=== PATIENT | male | born 1990 | race Caucasian/White ===

== ENCOUNTER 2016-05-06 19:50 | Emergency (ER) | payer SELFPAY ==
[~2016-05-06] VITALS: Ht 180.3 cm; Wt 67.3 kg
[2016-05-06 19:58] VITALS: BP 128/98; PULSE 73; RESP 15; TEMP 98.3; O2SAT 99
[2016-05-06] MEDS ORDERED: AUGM875T PO (20:11)
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
[2016-05-06] MEDS ORDERED: TETANUS/DIPHTHERIA TOXOID ADULT 0.5 ML VIAL IM ONE (20:15)
== END 2016-05-06 20:31 | disposition home or self-care (01) ==
LOC: PHEFT 19:50
DX: S61.451A Open bite of right hand, initial encounter (principal); S71.151A Open bite, right thigh, initial encounter; Y04.1XXA Assault by human bite, initial encounter; Y93.89 Activity, other specified; Y92.512 Supermarket, store or market as the place of occurrence of the external cause; Y99.0 Civilian activity done for income or pay; Z23 Encounter for immunization
CPT/HCPCS: 90471; 90714

== ENCOUNTER 2016-09-13 13:06 | Emergency (ER) | payer SELFPAY ==
[~2016-09-13] VITALS: Ht 180.3 cm; Wt 65.0 kg
[~2016-09-13 13:06] MED LIST: AUGM875T PO
[2016-09-13 13:08] VITALS: BP 125/80; PULSE 85; RESP 20; TEMP 98.7; O2SAT 97
--- NOTE | 2016-09-13 13:22 | PD ---
Physical Exam Time Seen by Provider: 13:21 Narrative 26yo M c/o R hand and wrist uinjury after punching wall last night. Patient seen in triage. VS reviewed. Awaiting bed placement. Data Data Last Documented VS Vital Signs Date Time Temp Pulse Resp B/P Pulse Ox O2 Delivery O2 Flow Rate FiO2 09/13/16 13:08 98.7 85 20 125/80 97 Room Air [facility] Supervised Visit with ADRIAN: Yanet Horn September 13, 2016 13:22
--- NOTE | 2016-09-13 14:26 | PD ---
HPI Chief Complaint: Injury Time Seen by Provider: 14:23 Travel History International Travel<30 days: No Contact w/Intl Traveler<30days: No Traveled to known affect area: No History of Present Illness HPI Patient's 26-year-old male presenting to him or talk evaluation of right hand pain. Patient states he struck a wall last night and he reports his pain as a 6 out of 10 and describes it as throbbing and aching. He reports pain in the dorsal aspect of his hand over the third fourth and fifth metacarpals. He took Aleve at 3:30 this morning and has not taken anything since that time. Patient denies any significant past medical history. [facility] Past Medical History Medical History: Denies Significant Hx Diminished Hearing: No Immunizations Current: Yes Social History Alcohol Use: No Tobacco Use: No Substance Use: Yes (marijuana) Allergies-Medications (Allergen,Severity, Reaction): Coded Allergies: No Known Allergies (Unverified , 09/13/16) Reported Meds & Prescriptions Reported Meds & Active Scripts Active Review of Systems Except as stated in HPI: all other systems reviewed are Neg Musculoskeletal: Positive: Myalgias, Arthralgias, Pain Physical Exam Narrative GENERAL: Well-nourished, well-developed patient. SKIN: Focused skin assessment warm/dry. HEAD: Normocephalic. EYES: No scleral icterus. No injection or drainage. NECK: Supple, trachea midline. No JVD or lymphadenopathy. CARDIOVASCULAR: Regular rate and rhythm without murmurs, gallops, or rubs. RESPIRATORY: Breath sounds equal bilaterally. No accessory muscle use. GASTROINTESTINAL: Abdomen soft, non-tender, nondistended. MUSCULOSKELETAL: No cyanosis, or edema. No obvious deformities noted. 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 Patient is neurovascularly intact. BACK: Nontender without obvious deformity. No CVA tenderness. Data Data Last Documented VS Vital Signs Date Time Temp Pulse Resp B/P Pulse Ox O2 Delivery O2 Flow Rate FiO2 09/13/16 13:08 98.7 85 20 125/80 97 Room Air Orders Hand, Complete ([id number]) (09/13/16 13:20) Wrist, Complete ([id number]) (09/13/16 13:20) Ibuprofen (Motrin) (09/13/16 14:30) MDM Medical Decision Making Medical Screen Exam Complete: Yes Emergency Medical Condition: Yes Interpretation(s) Vital Signs Date Time Temp Pulse Resp B/P Pulse Ox O2 Delivery O2 Flow Rate FiO2 09/13/16 13:08 98.7 85 20 125/80 97 Room Air Differential Diagnosis Fracture versus sprain versus strain versus other Narrative Course Patient is a 26-year-old male presenting with right hand pain after striking a wall last night. Imaging ordered and pending. Vital signs are stable, patient is resting comfortably with friend at bedside. Motrin ordered for pain. Wrist x-ray is negative for acute fracture. Hand x-ray is negative for acute fracture. Patient is encouraged to alternate heat and ice to the affected area, continue range of motion exercises, take medications as directed. He is advised to follow-up with his primary doctor. He is encouraged to return to emergency department for any new or worsening symptoms. Diagnosis Primary Impression: Hand pain Qualified Code: M79.641 - Pain of right hand Referrals: Primary Care Physician Patient Instructions: General Instructions, Hand Sprain (ED) Additional Instructions: Alternate heat and ice to affected area, continue range of motion exercises, take medications as directed, avoid exacerbating activities Follow-up with your primary doctor Return to emergency department for any new or worsening symptoms Do not hit hard objects with your fist Med/Other Pt SpecificInfo: Prescription(s) given Scripts Cyclobenzaprine (Flexeril)10 Mg Tab10 Mg PO TID PRN (MUSCLE SPASM) 10 Days Ref 0 Prov:Rosio Myers 09/13/16 Ibuprofen 800 Mg [id number] Mg PO Q6HR PRN (PAIN) #40 TAB Ref 0 Prov:Rosio Myers 09/13/16 Disposition: 01 DISCHARGE HOME Condition: Stable Rosio Myers September 13, 2016 14:26
[2016-09-13] MEDS ORDERED: IBUPROFEN 800 MG TAB PO ONE (14:30)
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
--- NOTE | 2016-09-13 15:17 | RADRPT ---
EXAM DATE/TIME: 09/13/2016 13:42 [facility] COMPARISON: No previous studies available for comparison. INDICATIONS : Right medial wrist pain. Punching injury. MEDICAL HISTORY : None. SURGICAL HISTORY : None. ENCOUNTER: Initial ACUITY: 1 day PAIN SCORE: 9/10 LOCATION: Right medial wrist FINDINGS: 3 views right hand. Bone alignment within normal limits. No evidence of fracture. CONCLUSION: No evidence of fracture. Ángel Alva MD on September 13, 2016 at 15:14 Board Certified Radiologist. This report was verified electronically.
[2016-09-13] MEDS ORDERED: IBUP800T23 PO (15:28)
[2016-09-13] MEDS ORDERED: CYCL1TAB29 PO (15:28)
== END 2016-09-13 15:49 | disposition home or self-care (01) ==
LOC: NEPK 13:06
DX: M79.641 Pain in right hand (principal)
CPT/HCPCS: 73110; 73130; 99283

== ENCOUNTER 2017-01-14 13:12 | Emergency (ER) | payer SELFPAY ==
[~2017-01-14 13:12] MED LIST changes: -AUGM875T PO; +CYCL1TAB29 PO; +IBUP800T23 PO
[2017-01-14 13:14] VITALS: BP 133/71; PULSE 69; RESP 15; TEMP 98.2; O2SAT 98
[2017-01-14 14:58] LABS: AUTOMATED NEUTROPHIL # 5.4 TH/MM3 (1.8-7.7); BASOPHIL % 0.2 % (0.0-2.0); EOSINOPHIL % 0.1 % (0.0-4.0); HEMATOCRIT 45.1 % (39.0-51.0); HEMO FLAGS DIFF FINAL; LYMPH % 13.8 % (9.0-44.0); LYMPHOCYTE # 1.1 TH/MM3 (1.0-4.8); MEAN CELL VOLUME 90.3 FL (80.0-100.0); MEAN CORPUSCULAR HEMOGLOBIN 31.7 PG (27.0-34.0); MEAN CORPUSCULAR HGB CONC 35.1 % (32.0-36.0); MONO % 15.5 % (0.0-8.0); NEUT % 70.4 % (16.0-70.0); PLATELET COUNT 172 TH/MM3 (150-450); RED CELL DISTRIBUTION WIDTH 12.8 % (11.6-17.2); WHITE BLOOD COUNT 7.7 TH/MM3 (4.0-11.0)
[2017-01-14 15:01] LABS: BACTERIA, URINE OCC /hpf; BLOOD, URINE NEG (NEG); GLUCOSE,URINE NEG (NEG); KETONE, URINE 150 mg/dL (NEG); MUCUS URINE MANY /lpf (OCC); NITRITE,URINE NEG (NEG); PH, URINE 6.5 (5.0-8.5); URINE COLOR YELLOW (YELLW/STRAW)
[2017-01-14 15:02] LABS: COMMENT (UR) CULT NOT INDICATED; CULTURE IF INDICATED CULT NOT INDICATED
[2017-01-14 15:10] VITALS: BP 123/91; PULSE 84; RESP 16; TEMP 97.7; O2SAT 100
[2017-01-14 15:17] LABS: ALT (GPT) 17 U/L (12-78); ANION GAP 9 MEQ/L (5-15); AST (GOT) 14 U/L (15-37); BICARBONATE 24.9 MEQ/L (21.0-32.0); BLOOD UREA NITROGEN 22 MG/DL (7-18); CHLORIDE 101 MEQ/L (98-107); GLOMERULAR FILTRATION RATE 118 ML/MIN (>89); POTASSIUM 3.7 MEQ/L (3.5-5.1); SODIUM (NA) 135 MEQ/L (136-145)
[2017-01-14 15:19] LABS: ALKALINE PHOSPHATASE 79 U/L (45-117); TOTAL BILIRUBIN ADULT 0.9 MG/DL (0.2-1.0)
[2017-01-14] MEDS ORDERED: LIDOCAINE HCL 1% 50 ML VIAL XX ONE (15:30)
[2017-01-14] MEDS ORDERED: cefTRIAXone 250 MG VIAL IM ONE (15:30)
[2017-01-14] MEDS ORDERED: AZITHROMYCIN PWD FOR SUSP 1 GM PACKET PO ONE (15:30)
--- NOTE | 2017-01-14 15:39 | PD ---
HPI Chief Complaint: GI Complaint Time Seen by Provider: 15:21 Travel History International Travel<30 days: No Contact w/Intl Traveler<30days: No Traveled to known affect area: No History of Present Illness HPI 26-year-old male here for evaluation of abdominal pain, possible STI, and sore throat. Patient reports intermittent abdominal pains for the last month. Over the last 2 days he has had increasing pain which is mainly over his mid abdomen , however radiates to the rest of his abdomen. Pain is described as cramping, moderate, worse with movement and palpation. No history of abdominal surgeries. Patient is also noted some increased urinary frequency and dysuria with some penile discharge. He endorses recent unprotected intercourse. He also has had a sore throat for the last 2 days which is worse with swallowing. He has noted fevers and chills as well. No vomiting or diarrhea. PFSH Past Medical History Diminished Hearing: No Genitourinary: Yes (UTI) Immunizations Current: Yes Influenza Vaccination: No Past Surgical History Surgical History: No Previous Surgery Social History Alcohol Use: Yes (OCCASIONALLY) Tobacco Use: No Substance Use: Yes (marijuana) Allergies-Medications (Allergen,Severity, Reaction): Coded Allergies: No Known Allergies (Unverified , 01/14/17) Reported Meds & Prescriptions Reported Meds & Active Scripts Active Review of Systems Except as stated in HPI: all other systems reviewed are Neg Physical Exam Narrative GENERAL: Well-developed, well-nourished, comfortable, no apparent distress. SKIN: Focused skin assessment warm/dry. No rash. HEAD: Atraumatic. Normocephalic. EYES: Pupils equal and round. No scleral icterus. No injection or drainage. ENT: Mucous membranes pink and moist. Pharynx with erythema and bilateral tonsillar exudates. Uvula is midline. Normal phonation. No drooling or stridor. NECK: Trachea midline. No JVD. No nuchal rigidity. CARDIOVASCULAR: Regular rate and rhythm. RESPIRATORY: No accessory muscle use. Clear to auscultation. Breath sounds equal bilaterally. GASTROINTESTINAL: Abdomen soft, nondistended. Moderate diffuse tenderness without peritoneal signs. Normal bowel sounds. No hernias. MUSCULOSKELETAL: No obvious deformities. No clubbing. No cyanosis. No edema. NEUROLOGICAL: Awake and alert. No obvious cranial nerve deficits. Motor grossly within normal limits. Normal speech. PSYCHIATRIC: Appropriate mood and affect; insight and judgment normal. Data Data Last Documented VS Vital Signs Date Time Temp Pulse Resp B/P (MAP) Pulse Ox O2 Delivery O2 Flow Rate FiO2 01/14/17 16:59 81 16 137/82 (100) 100 Room Air 01/14/17 15:10 97.7 Orders Orders Urinalysis - C+S If Indicated (01/14/17 13:40) Gc And Chlamydia Pcr (01/14/17 13:40) Complete Blood Count With Diff (01/14/17 13:40) Comprehensive Metabolic Panel (01/14/17 13:40) Lipase (01/14/17 13:40) Azithromycin Powd Pack (Zithromax Powd P (01/14/17 15:30) Ceftriaxone Inj (Rocephin Inj) (01/14/17 15:30) Lidocaine 1% Inj (50 Ml) (Xylocaine 1% I (01/14/17 15:30) Monoscreen (01/14/17 15:25) Group A Rapid Strep Screen (01/14/17 15:25) Ct Abd/Pel W Iv Contrast(Rout) (01/14/17 15:25) Oral Contrast - Adult (01/14/17 15:34) Diatrizoate Liq ( Gastroview Liq) (01/14/17 15:44) Ondansetron Inj (Zofran Inj) (01/14/17 16:00) Strep Culture (Group A) (01/14/17 15:36) Iohexol 350 Inj (Omnipaque 350 Inj) (01/14/17 16:50) Labs Laboratory Tests Test 01/14/17 13:45 01/14/17 14:45 01/14/17 15:36 White Blood Count 7.7 TH/MM3 Red Blood Count 5.00 MIL/MM3 Hemoglobin 15.8 GM/DL Hematocrit 45.1 % Mean Corpuscular Volume 90.3 FL Mean Corpuscular Hemoglobin 31.7 PG Mean Corpuscular Hemoglobin Concent 35.1 % Red Cell Distribution Width 12.8 % Platelet Count 172 TH/MM3 Mean Platelet Volume 8.0 FL Neutrophils (%) (Auto) 70.4 % Lymphocytes (%) (Auto) 13.8 % Monocytes (%) (Auto) 15.5 % Eosinophils (%) (Auto) 0.1 % Basophils (%) (Auto) 0.2 % Neutrophils # (Auto) 5.4 TH/MM3 Lymphocytes # (Auto) 1.1 TH/MM3 Monocytes # (Auto) 1.2 TH/MM3 Eosinophils # (Auto) 0.0 TH/MM3 Basophils # (Auto) 0.0 TH/MM3 CBC Comment DIFF FINAL Differential Comment Blood Urea Nitrogen 22 MG/DL Creatinine 0.80 MG/DL Random Glucose 93 MG/DL Total Protein 8.9 GM/DL Albumin 4.4 GM/DL Calcium Level 9.4 MG/DL Alkaline Phosphatase 79 U/L Aspartate Amino Transf (AST/SGOT) 14 U/L Alanine Aminotransferase (ALT/SGPT) 17 U/L Total Bilirubin 0.9 MG/DL Sodium Level 135 MEQ/L Potassium Level 3.7 MEQ/L Chloride Level 101 MEQ/L Carbon Dioxide Level 24.9 MEQ/L Anion Gap 9 MEQ/L Estimat Glomerular Filtration Rate 118 ML/MIN Lipase 69 U/L Urine Color YELLOW Urine Turbidity CLEAR Urine pH 6.5 Urine Specific [place] 1.043 Urine Protein 100 mg/dL Urine Glucose (UA) NEG mg/dL Urine Ketones 150 mg/dL Urine Occult Blood NEG Urine Nitrite NEG Urine Bilirubin NEG Urine Urobilinogen 2.0 MG/DL Urine Leukocyte Esterase NEG Urine RBC 10 /hpf Urine WBC 6 /hpf Urine Bacteria OCC /hpf Urine Mucus MANY /lpf Microscopic Urinalysis Comment CULT NOT INDICATED Chlamydia trachomatis DNA (PCR) NOT DETECTED Neisseria gonorrhoeae DNA (PCR) NOT DETECTED Monoscreen NEG MDM Medical Decision Making Medical Screen Exam Complete: Yes Emergency Medical Condition: Yes Medical Record Reviewed: Yes Differential Diagnosis Pharyngitis, strep pharyngitis, mono, STI, UTI, cystitis, appendicitis, colitis Narrative Course Vital signs show heart rate 69, blood pressure 133/71, pulse ox 98% on room air , oral temp of 98.2F. CBC: WBC 7.7, hemoglobin 15.8, hematocrit 45.1, platelets 172. CMP is unremarkable. Lipase is 69. [place] screen negative. Group A strep is negative. UA: 100 protein, 150 ketones, 10 RBCs, 6 WBCs, occasional bacteria, many mucus. CT abdomen pelvis: CONCLUSION: Normal examination. Patient was empirically treated for gonorrhea and chlamydia with IM Rocephin and oral azithromycin. He does have pharyngitis on exam. He also has bacteriuria which is likely from urethritis. Plan is to discharge him home with a prescription for Ceftin. He is stable for discharge home with outpatient follow-up with a primary care physician this week. I will also given the name of the entertainment reporter distributed energy systems consultant with whom to follow up with given his 2 months of abdominal discomfort. He was informed on when to return to the emergency department. He verbalizes understanding and agreement with plan. Diagnosis Primary Impression: Urethritis Additional Impressions: Pharyngitis Qualified Codes: J02.9 - Acute pharyngitis, unspecified Abdominal pain Qualified Codes: R10.9 - Unspecified abdominal pain Referrals: Lainey Cedeno MD Petroleum Inspector [facility] [address] 3 days Additional Instructions: Follow-up with a primary care physician this week. Return to the emergency department for worsening symptoms or any other concerns. Scripts Cefuroxime (Cefuroxime) 500 Mg Tab 500 MG PO BID for Infection for 7 Days, #14 TAB 0 Refills Prov: Francisco Pope MD 01/14/17 Disposition: 01 DISCHARGE HOME Condition: Stable Francisco Pope MD Jan 14, 2017 15:39
[2017-01-14] MEDS ORDERED: DIATRIZOATE MEGLUM/DIATRIZOATE SOD 9 ML CUP ONE (15:44)
[2017-01-14] MEDS ORDERED: ONDANSETRON HCL 4 MG/2 ML VIAL IV PUSH ONE (16:00)
[2017-01-14] MEDS ORDERED: IOHEXOL 350 MG/ML 10 ML VIAL (for RAD DIAG) IVCONTRAST ONE (16:50)
[2017-01-14 16:59] VITALS: BP 137/82; PULSE 81; RESP 16; O2SAT 100
--- NOTE | 2017-01-14 17:05 | RADRPT ---
EXAM DATE/TIME: 01/14/2017 16:44 [facility] COMPARISON: No previous studies available for comparison. INDICATIONS : Sore throat,abdominal cramping, penile discharge, dysuria. IV CONTRAST: 95 cc Omnipaque 350 (iohexol) IV ORAL CONTRAST: Prescribed oral contrast ingested. RADIATION DOSE: 4.50 CTDIvol (mGy) MEDICAL HISTORY : None SURGICAL HISTORY : None. ENCOUNTER: Initial ACUITY: 1 day PAIN SCALE: 6/10 LOCATION: Bilateral middle abdomen. TECHNIQUE: Volumetric scanning of the abdomen and pelvis was performed. Using automated exposure control and ad justment of the mA and/or kV according to patient size, radiation dose was kept as low as reasonably achievable to obtain optimal diagnostic quality images. DICOM format image data is available electro nically for review and comparison. FINDINGS: LOWER LUNGS: The visualized lower lungs are clear. LIVER: Homogeneous density without lesion. There is no dilation of the biliary tree. No calcified gallston es. SPLEEN: Normal size without lesion. PANCREAS: Within normal limits. KIDNEYS: Normal in size and shape. There is no mass, stone or hydronephrosis. ADRENAL GLANDS: Within normal limits. VASCULAR: There is no aortic aneurysm. BOWEL/MESENTERY: The stomach, small bowel, and colon demonstrate no acute abnormality. There is no free intraperitone al air or fluid. ABDOMINAL WALL: Within normal limits. RETROPERITONEUM: There is no lymphadenopathy. BLADDER: No wall thickening or mass. REPRODUCTIVE: Within normal limits. INGUINAL: There is no lymphadenopathy or hernia. MUSCULOSKELETAL: Within normal limits for patient age. CONCLUSION: Normal examination. Julio C Pratt MD on January 14, 2017 at 17:01 Board Certified Radiologist. This report was verified electronically.
[2017-01-14 17:10] LABS: CHLAMYDIA PCR NOT DETECTED (NOT DETECT); NEISSERIA PCR NOT DETECTED (NOT DETECT)
[2017-01-14] MEDS ORDERED: CEFU1TAB20 PO (17:18)
== END 2017-01-14 17:40 | disposition home or self-care (01) ==
LOC: NEPD 13:12
DX: N34.2 Other urethritis (principal); J02.9 Acute pharyngitis, unspecified; R10.9 Unspecified abdominal pain
CPT/HCPCS: 74177; 80053; 81001; 83690; 85025; 86308; 87081; 87491; 87591; 87880; 96372; 96374; 99285; J0696; J2405; Q9963; Q9967